=== PATIENT | female | born 1950 | race Caucasian/White ===

== ENCOUNTER → 2017-06-10 | Outpatient (CLI) | payer OTHER ==
[~2017-06-10] VITALS: Ht 162.6 cm; Wt 64.4 kg
[~2017-06-10] MED LIST: ASPIR 8181 MG PO; FLEXERIL PO; FLONASE 0.05%50 MCG NASAL; LUMIGAN2.5 M1 OPHTHALMIC; MAGOX 400400 MG PO; NEURONTIN 300300 M1 PO; PROZAC10 MG PO; SYNTHROID75 MCG PO; TRAMADOL 50 MG50 MG PO; TRAZODONE HCL50 MG PO; TUMS PO; VITAMINC500 PO; WELLBUTRIN SR150 MG PO; ZANTAC 150MG T150 MG PO
--- NOTE | ~2017-06-10 | HPC ---
[facility] [place] [address] PAIN MANAGEMENT CONSULTATION Name: JARRETT RENDON [id number] Admission: 06/10/17 Attend Phys: Olivia Mclain MD Discharge: Date of : 46 Report #: [id number] THIS REPORT FOR: //name// CC: Natalie Mclain DATE OF SERVICE: 06/10/2017 CHIEF COMPLAINT: Left hip pain and pain on my back side. HISTORY OF PRESENT ILLNESS: The patient is a 66-year-old female who has been referred to the pain clinic for evaluation of low back and hip pain. The patient has had some pain and discomfort since 2013. She describes her current pain is sharp, stabbing into her left hip. She notes that the pain is worse when she has been on her feet for an extended period of time. Notes that the pain improves somewhat after lying down. Describes it as sharp and stabbing, rates it as a 4/10 depending on her level of activity. It could rise to the level of 10. She has had back surgery at L4-L5 in 2009. Also had a laminectomy in approximately 2007. Finds that she is unable to take nonsteroidal anti-inflammatory medications because of gastroesophageal reflux disease and does not take prescription pain medication because of the addictive tendencies of these medications. Her stage III kidney disease has improved to stage 2 with discontinuation of her nonsteroidal anti-inflammatory medications. She continues to use ice, Biofreeze and some limited stretching to help temporarily relieve the pain. Pain is worse when she is weightbearing. The patient states that she did have some procedure in the lower portion of her back with where they "burned the nerve, but did not receive any significant long-term improvement in her pain." ALLERGIES: NONSTEROIDAL ANTI-INFLAMMATORY MEDICATIONS HAVE BEEN STOPPED SECONDARY TO GERD AND WORSENING OF KIDNEY FUNCTION FROM THE USE OF THESE MEDICATIONS. The patient stays away from opioid medications secondary to the addictive tendencies. CURRENT MEDICATIONS: Ultram 50 mg q.4 hours p.r.n. pain, Synthroid 75 mcg daily, magnesium oxide 400 mg, Zantac 150 mg b.i.d., takes famotidine 20 mg b.i.d., in substitution; vitamin C 500 mg daily, Wellbutrin-SR 150 mg daily, Lumigan 0.01% eye drops to the affected eye daily, Flexeril 10 mg t.i.d. p.r.n., Prozac 10 mg daily, Desyrel 50 mg at bedtime, gabapentin 300 mg daily, Flonase 2 sprays daily, Calcium Chewable 500 mg daily, aspirin 81 mg chewable. PAST MEDICAL HISTORY: Anemia, hypertension, stomach problems, emotional problems, joint disease/kidney disease. [facility] [address] [place] [address] PAIN MANAGEMENT CONSULTATION Name: JARRETT RENDON Room #: REG CL Macrina#: [id number] Admission: 06/10/17 Attend Phys: Olivia Mclain MD Discharge: Date of : 46 Report #: [id number] PAST SURGICAL HISTORY: Back surgery L4-L5 02/2010, right shoulder surgery 09/2005, left shoulder surgery 06/2002, laminectomy approximately 2007, hysterectomy in 1983. Partial thyroidectomy in 1989. REVIEW OF SYSTEMS: Questionnaire in the chart indicate generally good health, wears glasses, cataracts/glaucoma, chronic rhinitis, varicose veins, lightheadedness, dizziness, numbness and tingling sensation, memory loss, nervousness, depression, easy bruising. PAIN CLINIC ASSESSMENT: 1. History of osteoarthritis/rheumatoid arthritis. The patient has had low back surgery. 2. Height 5 feet 4 inches, weight 242 pounds, BMI is 24. 3. Vital signs 165/81, pulse 64, respiratory rate 16, room air saturation 99%. 4. Pain intensity 4. 5. Fall risk. The patient has intermittent bouts of vertigo, fell in the snow a few weeks ago. 6. The patient is not on blood thinners. 7. The patient is being treated for hypertension. 8. The patient is taking Ultram. 9. Risk assessment tool. 10. Functional assessment tool. Patient's score is 38 on a scale of 70. Regarding activity, mood, walking ability, work, relationships with others, sleep and enjoyment of life. 11. Recreational drug use. Denies using recreational drugs, or tobacco. The patient has never smoked. Alcohol use, approximately 2 alcoholic beverages per month. PHYSICAL EXAMINATION: GENERAL: The patient is a well-developed female, appears her stated is alert and oriented x 3. Affect is appropriate. HEENT: Head is atraumatic. Extraocular eye muscles intact. Hearing within normal limits. Moist buccal membranes. No significant nasal congestion. NECK: Without adenopathy or masses. LUNGS: Clear to auscultation. HEART: Regular rate. ABDOMEN: Nontender. MUSCULOSKELETAL: Shows normal alignment without evidence of scoliosis, kyphosis, lordosis. The patient complains of some pain and discomfort in the left low back with some radiation down into the right hip. Lumbar flexion to about 45 degrees. Lumbar extension, left and right lateral rotation, left and right lateral bending causes some increased discomfort in the area of the left buttocks. Upper extremity exam reveals +1 biceps tendon reflex trace brachioradialis and triceps bilaterally. Muscle groups 5/5. NEUROLOGICAL: No neurological changes. Palpation in the left posterior [facility] [address] [place] [address] PAIN MANAGEMENT CONSULTATION Name: JARRETT RENDON Room #: REG ROCÍO Schrader#: [id number] Admission: 06/10/17 Attend Phys: Olivia Mclain MD Discharge: Date of : 46 Report #: [id number] superior iliac spine area causes some pain and reproduction of pain and discomfort in her back. Anterior spring test was negative. Lateral spring test is negative. Fredrick's test is negative at this point in evaluation and ankle reflexes are difficult to assess. Deep tendon reflexes in the knees +1. The patient has some pain and discomfort and soreness in the palpation of the left paraspinous muscles and near the gluteus lynnette/latissimus dorsi, near the posterior superior iliac spine. ASSESSMENT: 1. Myofascial pain, left posterior superior iliac spine area. 2. Hypertension. 3. History of vertigo. 4. Hypertension. 5. Emotional problems. 6. Gastroesophageal reflux. 7. Hypothyroidism. RECOMMENDATIONS: We discussed treatment options. The risks and benefits of a trigger point injection were discussed. Possible complications of the procedure were reviewed. They include but are not limited to infection, increased muscle soreness, worsening of pain or no improvement in pain. The patient elects to proceed. PROCEDURE NOTE: The patient was placed in the sitting position. Her back was sterilely prepped with a chlorhexidine solution. This was allowed to dry. Palpation in the area of the left posterior superior iliac spine near the gluteus lynnette and latissimus dorsi were palpated. This did reproduce the patient's pain. A 25-gauge needle was then advanced into the area. The patient states that this was the area of her pain and discomfort. Total of 10 mL of 0.5% bupivacaine and 40 mg triamcinolone was injected. The patient's pain decreased from 4 to 0 at the time of discharge. She will follow up in the future as needed. We would like to thank you for letting us participate in her care. We hope she continues to improve. <ELECTRONICALLY SIGNED> By: Olivia Mclain MD 07/06/17 1429 [id number] Olivia Mclain MD /nt
[2017-06-10 09:47] VITALS: BP 165/81
== END ==
LOC: PAIN 07:18
DX: M79.1 Myalgia (principal); I10 Essential (primary) hypertension; R42 Dizziness and giddiness; K21.9 Gastro-esophageal reflux disease without esophagitis; D64.89 Other specified anemias; E03.8 Other specified hypothyroidism; M19.90 Unspecified osteoarthritis, unspecified site; Z88.5 Allergy status to narcotic agent; Z88.8 Allergy status to other drugs, medicaments and biological substances; Z79.899 Other long term (current) drug therapy; Z79.82 Long term (current) use of aspirin

== ENCOUNTER → 2017-06-29 | Outpatient (CLI) | payer OTHER ==
[~2017-06-29] VITALS: Ht 162.6 cm; Wt 63.8 kg
--- NOTE | ~2017-06-29 | HPC ---
[facility] [place] [address] PAIN MANAGEMENT CONSULTATION Name: JARRETT RENDON Room #: REG [facility] [id number] Admission: 06/29/17 Attend Phys: Olivia Mclain MD Discharge: Date of : 46 Report #: [id number] THIS REPORT FOR: //name// CC: Natalie Mclain DATE OF SERVICE: 07/08/2017 CHIEF COMPLAINT: Left low back side and hip pain. HISTORY OF PRESENT ILLNESS: The patient is a 66-year-old female who has been referred to the pain clinic for evaluation. She is having pain in the lower portion of her back. She has had some pain and discomfort since 2013. Describes it as sharp, stabbing discomfort. She underwent an injection at the last visit. This pain was in the left posterior part of her back in the left. After her injection, she notes that her pain decreased at that time from 4 to 0 at the time of discharge. She has returned today indicating that she has noted some improvement in that particular pain. She is still having some pain and discomfort in the low back area, more in the area of her lower buttocks. Notes that the pain is worse when she is weightbearing. Also, it can be exacerbated by being on her feet "for too long." It improves when she lies down. She has tried some stretching as well as using Biofreeze. Notes that the pain can increase with certain activities. No change in bowel or bladder function. No significant pain radiating down into her legs. She still finds the pain uncomfortable and would like additional treatment. ALLERGIES: NONSTEROIDAL ANTI-INFLAMMATORY MEDICATIONS have been stopped secondary to gastroesophageal reflux disease. She also is complaining about some worsening of her kidney function. CURRENT MEDICATIONS: Used at this point have been reviewed and are Ultram 50 mg q.4 hours p.r.n., Synthroid 75 mcg daily, magnesium oxide 400 mg, Zantac 150 mg b.i.d., famotidine 20 mg b.i.d., vitamin C 500 mg, Wellbutrin-SR 150 mg daily, Lumigan 0.01% eye drops to affected eye, Flexeril 10 mg 1 p.o. t.i.d., Prozac 10 mg daily, Desyrel 50 mg at bedtime, gabapentin 300 mg daily, Flonase 2 sprays daily, calcium chewables 500 mg daily, aspirin 81 mg chewables. PAIN CLINIC ASSESSMENT: 1. Osteoarthritis/rheumatoid arthritis history. The patient has had low back surgery. 2. Height 5 feet 4 inches, weight 140 pounds, BMI is 21. 3. Vital signs: Blood pressure 140/82, pulse 86, respiratory rate 16, room air saturation is 98%. 4. Pain intensity 2 now, can increase as the day progresses. 5. Fall risk. The patient has not fallen in the last 3 months. Does have some [address] [address] PAIN MANAGEMENT CONSULTATION Name: JARRETT RENDON Room #: REG CL Macrina#: [id number] Admission: 06/29/17 Attend Phys: Olivia Mclain MD Discharge: Date of : 46 Report #: [id number] history of vertigo. Fell in the snow a few weeks ago. 6. The patient is not on a blood thinner. 7. History of hypertension. The patient is being treated for hypertension. 8. Opioid therapy greater than 6 weeks. The patient is not on a signed contract with opioid therapy. 9. Risk assessment tool. 10. Functional assessment tool. 11. Recreational drugs. The patient denies use of recreational drugs. Tobacco: The patient denies use of tobacco. Alcohol: The patient does drink about 2 alcoholic beverages per month. PHYSICAL EXAM: GENERAL: The patient is a well-developed female, appears her stated age. She is alert and oriented x 3. Her affect is appropriate. HEENT: Atraumatic. Extraocular eye muscles intact. Hearing within normal limits. Moist buccal membranes, no significant nasal congestion. NECK: Without adenopathy or masses. LUNGS: Clear to auscultation. HEART: Regular rate. ABDOMEN: Nontender. MUSCULOSKELETAL: Shows normal alignment without evidence of scoliosis, kyphosis or lordosis. The patient complains of some pain and discomfort in the low back area and in the area of the buttocks. Palpation deeply into the area near the piriformis muscle causes some pain and discomfort. Flexion to about 45 degrees is present with some increased discomfort in the buttocks area. Upper extremities exam reveals +1 biceps tendon reflexes with trace brachioradialis and triceps bilaterally. Muscle group strength is 5/5. NEUROLOGIC: No neurologic changes in the upper extremity. Pain in the area of the posterior superior iliac spine, which is more problematic at the last visit has improved. Palpation of pain in the area of the piriformis muscle caused a reproduction of pain and discomfort in the patient's lower buttocks. IMPRESSION: 1. Myofascial pain, principally in the area of the piriformis muscle on the left, left hip/back discomfort. 2. Hypertension. 3. History of vertigo. 4. The patient has not fallen since we saw her last. 5. Emotional problems. 6. Gastroesophageal reflux. 7. Hypothyroidism. RECOMMENDATIONS: We discussed treatment options with the patient. The patient has pain and discomfort in the area of the piriformis muscle. Deep palpation in this area does reproduce a significant component of her pain. We have discussed the possible complications, which include continued conservative treatment. [facility] [address] [place] [address] PAIN MANAGEMENT CONSULTATION Name: JARRETT RENDON Room #: REG [facility]#: [id number] Admission: 06/29/17 Attend Phys: Olivia Mclain MD Discharge: Date of : 46 Report #: [id number] Medrol Dosepak. An injection with local anesthetic into the affected area. The patient elects to proceed with an injection. PROCEDURE NOTE: The patient was placed in the right lateral decubitus position. Palpation of the left lower buttock area near the piriformis muscle was palpated. The patient states that this reproduced her discomfort. A 25-gauge needle was then advanced into the area of discomfort. Total of 40 mg triamcinolone and 1% lidocaine was injected. We have reminded the patient possibility of some numbness or weakness in the sciatic nerve area. There were no complaints. The patient remained in the pain clinic for an appropriate amount of time. She was accompanied by her . She will return to the pain clinic as needed. We would like to thank you for letting us participate in her care. We hope she continues to improve. <ELECTRONICALLY SIGNED> By: Olivia Mclain MD 07/22/17 0823 [id number] Olivia Mclain MD /SERGIO
[2017-06-29 10:37] VITALS: BP 140/82
== END | disposition home or self-care (01) ==
LOC: PAIN 07:10
DX: M79.1 Myalgia (principal); I10 Essential (primary) hypertension; K21.9 Gastro-esophageal reflux disease without esophagitis; E03.9 Hypothyroidism, unspecified; F11.20 Opioid dependence, uncomplicated; M06.9 Rheumatoid arthritis, unspecified; Z79.899 Other long term (current) drug therapy